=== PATIENT | female | born 1960 | race Caucasian/White ===

== ENCOUNTER → 2017-08-06 | Outpatient (CLI) | payer OTHER | END | disposition home or self-care (01) | LOC: CFH 07:26 | DX: Z12.31 Encounter for screening mammogram for malignant neoplasm of breast (principal) | CPT/HCPCS: G0202 ==

== ENCOUNTER → 2018-02-01 | Outpatient (CLI) | payer OTHER | END | disposition home or self-care (01) | LOC: CFH 09:09 | DX: M25.561 Pain in right knee (principal) ==

== ENCOUNTER → 2018-05-13 | Outpatient (CLI) | payer OTHER | END | disposition home or self-care (01) | LOC: CFH 07:51 | DX: M94.261 Chondromalacia, right knee (principal); M23.211 Derangement of anterior horn of medial meniscus due to old tear or injury, right knee ==

== ENCOUNTER → 2018-11-19 | Outpatient (CLI) | payer OTHER | END | disposition home or self-care (01) | LOC: CFH 07:38 | PROVIDERS: ATTEND Nurse Practitioner Primary Care | DX: Z12.31 Encounter for screening mammogram for malignant neoplasm of breast (principal) | CPT/HCPCS: 77067 ==

== ENCOUNTER 2018-12-24 18:35 | Emergency (ER) | payer OTHER ==
[~2018-12-24] VITALS: Ht 175.3 cm; Wt 78.4 kg
[2018-12-24 18:38] VITALS: BP 151/81
[2018-12-24] MEDS ORDERED: IBUPROFEN 800 MG TABLET PO ONE (19:30)
[2018-12-24] MEDS ORDERED: IBUPROFEN 200 MG TABLET ONE (19:34)
== END 2018-12-24 20:10 | disposition home or self-care (01) ==
LOC: ED 19:14
DX: S82.432A Displaced oblique fracture of shaft of left fibula, initial encounter for closed fracture (principal); S82.52XA Displaced fracture of medial malleolus of left tibia, initial encounter for closed fracture; W10.9XXA Fall (on) (from) unspecified stairs and steps, initial encounter; Y93.89 Activity, other specified; Y92.009 Unspecified place in unspecified non-institutional (private) residence as the place of occurrence of the external cause; Y99.8 Other external cause status
CPT/HCPCS: 29515; 99283

== ENCOUNTER 2018-12-31 07:05 | Day surgery (SDC) | payer OTHER ==
[~2018-12-31] VITALS: Ht 175.3 cm; Wt 79.1 kg
[2018-12-31 07:23] VITALS: BP 145/77
[2018-12-31 07:25] VITALS: BP 145/77
[2018-12-31] MEDS ORDERED: NEOSPORIN OINT, 15GM ONE (07:31)
[2018-12-31] MEDS ORDERED: BUPIVACAINE/PF-EPI 0.5% 1:200K ONE (07:31)
[2018-12-31] MEDS ORDERED: THYROID PO (07:32)
[2018-12-31] MEDS ORDERED: LACTATED RINGERS 1,000 ML IV SCH (07:42)
[2018-12-31] MEDS ORDERED: FENTANYL PF 100 MCG/2ML ONE (07:59)
[2018-12-31] MEDS ORDERED: MIDAZOLAM 1 MG/ML, 2ML ONE (07:59)
[2018-12-31] MEDS ORDERED: MEPERIDINE/PF 100 MG/ML ONE (08:21)
[2018-12-31] MEDS ORDERED: DEXAMETHASONE 4 MG/ML, 1ML ONE (08:53)
[2018-12-31] MEDS ORDERED: CEFAZOLIN 1,000 MG ONE (08:53)
[2018-12-31] MEDS ORDERED: ONDANSETRON 2MG/ML, 2ML ONE (08:53)
[2018-12-31] MEDS ORDERED: PROPOFOL 10 MG/ML, 20ML ONE (08:53)
[2018-12-31] MEDS ORDERED: LABETALOL 5MG/ML, 20ML IV PRN (09:30)
[2018-12-31] MEDS ORDERED: ALBUTEROL SULFATE 2.5 MG/3 ML NPPB PRN (09:30)
[2018-12-31] MEDS ORDERED: hydrALAzine 20 MG/ML, 1ML IV PRN (09:30)
[2018-12-31] MEDS ORDERED: OXYcodone 5 MG/5 ML ORAL.SOL UDC PO PRN (09:30)
[2018-12-31] MEDS ORDERED: PROMETHAZINE 25 MG/ML, 1ML IV PRN (09:30)
[2018-12-31] MEDS ORDERED: HYDROmorphone 2 MG/ML, 1ML IVPush PRN (09:30)
[2018-12-31] MEDS ORDERED: MEPERIDINE/PF 25MG/0.5ML IVPush PRN (09:30)
[2018-12-31] MEDS ORDERED: DIAZEPAM 5 MG/ML, 2ML IVPush PRN (09:30)
[2018-12-31] MEDS ORDERED: FENTANYL PF 100 MCG/2ML IV PRN (09:30)
[2018-12-31] MEDS ORDERED: KETOROLAC 30 MG/1 ML IV PRN (09:30)
[2018-12-31] MEDS ORDERED: ACETAMINOPHEN 325 MG TABLET PO PRN (09:30)
== END 2018-12-31 11:15 | disposition home or self-care (01) ==
LOC: OUT 07:05
PROVIDERS: ATTEND Orthopaedic Surgery
DX: S82.842A Displaced bimalleolar fracture of left lower leg, initial encounter for closed fracture (principal); Z79.890 Hormone replacement therapy; X58.XXXA Exposure to other specified factors, initial encounter; Y93.89 Activity, other specified; Y92.89 Other specified places as the place of occurrence of the external cause; Y99.8 Other external cause status
CPT/HCPCS: 27814; 64445; 64447; 73600; 76000; C1713; J0690; J1100; J2175; J2250; J2405; J2704; J3010; J7120

== ENCOUNTER → 2020-05-18 | Outpatient (CLI) | payer BC ==
[~2020-05-18] MED LIST: THYROID PO
== END | disposition home or self-care (01) ==
LOC: CFH 08:01
PROVIDERS: ATTEND Nurse Practitioner Primary Care
DX: Z12.31 Encounter for screening mammogram for malignant neoplasm of breast (principal)
CPT/HCPCS: 77063; 77067